=== PATIENT | female | born 1940 | race Caucasian/White ===

== ENCOUNTER 2016-07-24 18:05 | Inpatient (IN) | payer MEDICARE, OTHER ==
--- NOTE | ~2016-07-24 | HP ---
History And Physical [place] [id number] [facility] [place]. [address] NAME: JO SWEENEY : 40 STATUS : ADM IN [facility]#: [id number] AGE: 75 ADM/REG DATE : 07/24/16 MR#: [id number] REPORT SERV DATE: 07/25/16 DICTATED BY: LUIS ALBERTO FITZPATRICK DATE: 07/24/16 REPORT STATUS : Draft TRANSCRIBED BY: MODL DATE: 07/24/16 DATE OF ADMISSION: 07/24/2016 IDENTIFYING DATA: A 75-year-old white female, whose PCP is Dr. 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 CHIEF COMPLAINT: Rapid atrial fibrillation. HISTORY OF PRESENT ILLNESS: This history of present illness is obtained by talking with the patient as well as with Dr. Haddad on the phone as well as reviewing [employer] and [employer] and the notes that came from Dr. Haddad's office. The patient has a known history of paroxysmal atrial fibrillation and previously was supposed to be on Coumadin, although she tells me now that she never took it. She also had been seen Dr. Percy Carson of [facility] and was suspected of having paroxysms of atrial fibrillation and he wanted to have her wear a "[employer] monitor" back in August of 2013, however, she never went back to see him about that. Recently, she has been having frequent episodes of bronchitis and Dr. Haddad states she recently had Augmentin and has had about seven days worth of therapy for that, but she did not feel like she was a lot better. She stated that it made her have pain with urination and some nausea, so she quit it. She has also had several days of significant fatigue. She has been spending most of her time in the bed. She had subjectively felt fever, but did not check her temperature. She said she had chills. She had some vague shortness of breath. She went to see Dr. Haddad about this and was found to be in atrial fibrillation with rapid ventricular response, and he called us to admit her to the hospital. She states that she had her flu shot last year and she had her Prevnar vaccination in 2014. She has cut her smoking down to essentially where she stopped some time earlier this year. REVIEW OF SYSTEMS: On review of systems, she has occasional pain on the top of her head. In the last few days, she had some left facial pain, a fluttering sensation in her ears. She has postnasal drip. She has some nausea, some urinary hesitancy, some urinary urgency, and some bilateral pedal edema that is chronic. She has occasional headache. She feels bloated in the abdomen. She has lost about 4 pounds in the last six months. She denies chest pain, abdominal pain, vomiting, diarrhea, rectal bleeding, melena, or rash. She states she gets a flash of light before each eye intermittently and she has seen her eye doctor about that, and they told her it was a type of migraine. ALLERGIES: SHE CLAIMS ALLERGIES TO MORPHINE, CEPHALOSPORIN, SULFA, CODEINE, AND ERYTHROMYCIN. PAST MEDICAL HISTORY: She denies any history of diabetes, stroke, seizure, peptic ulcer or biliary tract disease, liver disease, chronic kidney disease, or sleep apnea. History And Physical [address] [address] NAME: JO SWEENEY : 40 STATUS : ADM IN [facility]#: [id number] AGE: 75 ADM/REG DATE : 07/24/16 MR#: [id number] REPORT SERV DATE: 07/25/16 DICTATED BY: LUIS ALBERTO FITZPATRICK DATE: 07/24/16 REPORT STATUS : Draft TRANSCRIBED BY: JOEL DATE: 07/24/16 She has had a coronary event with a heart attack in 2008. She reportedly had a cath showing an occluded second obtuse marginal at that time, was recommended for medical therapy. She has had previous thyroid cancer, treated with surgical resection. She has had surgery twice. She has had frequent bronchitis episodes and COPD. She has osteoporosis. She has moderate tricuspid regurgitation and a history of mitral regurgitation. She has postsurgical hypothyroidism. She has hypertension. She has had colon polyps. She has lumbar spine degenerative disk disease and had previous epidural steroid injections. HOME MEDICATIONS: She completed Augmentin, Tums 500 mg daily, vitamin D 1000 units daily, levothyroxine 75 mcg daily, metoprolol 12.5 mg b.i.d., and Pravachol 20 mg at bedtime. PAST SURGICAL HISTORY: She has had a partial colectomy for benign adenoma. She has had thyroid resected twice, hysterectomy, appendectomy, and cataract surgery. SOCIAL HISTORY: She is a . She quit smoking earlier this year. She states she really never smoked that much in her opinion. She has no alcohol intake history. 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 She lives alone. She walks without assistive device. FAMILY HISTORY: Mother had reported some type of skin disease. Father had congestive heart failure. Siblings with congestive heart failure. DIAGNOSTIC DATA: EKG sent today from Dr. Haddad's office done this afternoon reveals atrial fibrillation with rapid ventricular response with a heart rate in the 130s. The patient has an unusual axis with very positive AVR. She has nonspecific ST- and T-wave changes. PHYSICAL EXAMINATION: VITAL SIGNS: Temp is 98, pulse is varying anywhere from 118 to 140, respirations are 24, blood pressure 146/79, and O2 saturation is 94% on room air. GENERAL: A well-developed, thin, older female, who appears at this time in no acute distress. HEENT: Head is atraumatic. Pupils are equal, round, and reactive to light. Extraocular motions are intact. No scleral icterus noted. Ears, externally unremarkable. No inflammatory changes noted. Hearing normal bilaterally. Nose, noninflamed externally. Septum midline. Nares patent. Mouth, moist. Good gag. No redness of the throat, gums, or lips. NECK: Supple. No lymph node or thyroid enlargement. The carotids have good pulses. No bruits. LUNGS: Prolonged expiratory phase. Distant airflow. A few wheezes. No increased respiratory effort. HEART: Irregularly irregular without gallop, click, murmur, or rub. ABDOMEN: Bowel sounds positive. Soft, flat, nondistended, and nontender. No masses. No organomegaly. EXTREMITIES: Thin. She has 1+ bilateral ankle edema. No clubbing. No cyanosis. No edema. No actively inflamed skin or joints. NEUROLOGIC: She is alert, oriented, pleasant, and cooperative with motor strength that is 3/5 in all four extremities. No Babinski. No clonus noted. Cranial nerves II through XII History And Physical [address] [address] NAME: JO SWEENEY : 40 STATUS : ADM IN [facility]#: [id number] AGE: 75 ADM/REG DATE : 07/24/16 MR#: [id number] REPORT SERV DATE: 07/25/16 DICTATED BY: LUIS ALBERTO FITZPATRICK DATE: 07/24/16 REPORT STATUS : Draft TRANSCRIBED BY: MODNancy DATE: 07/24/16 are grossly normal. ASSESSMENT: 1. Recurrent paroxysmal atrial fibrillation with rapid ventricular response. 2. Chronic obstructive pulmonary disease in a patient who has recently quit smoking. 3. Possible urinary tract infection versus yeast vaginitis from recent antibiotic use. 4. History of coronary artery disease with a heart attack in 2008, treated with medical therapy. 5. Previous thyroid cancer resected. 6. History of osteoporosis. 7. History of previous benign colon polyp. 8. Hypothyroidism. 9. History of hypertension. PLAN: 1. Admit to a telemetry unit. We are going to increase her beta-ismael. If her heart rate sustains greater than 120, we will add Cardizem infusion protocol. We will begin anticoagulation with Eliquis and check the co-payment cost for her, and if it is too expensive, consider other options. 2. We will check procalcitonin and troponin and magnesium, and we will also get an echocardiogram and TSH. We will get urine culture, blood culture, and we will try to verify whether she is really on Symbicort at home or not. ROGERIO/JOEL Luis Alberto Fitzpatrick M.D. / [id number] CC: Amrita Holley M.D. [facility]
--- NOTE | ~2016-07-24 | CN ---
Consultation Report [facility] [address] [place]. [address] NAME: JO BHATIA : 40 STATUS : ADM IN PAT#: [id number] AGE: 75 ADM/REG DATE : 07/24/16 MR#: [id number] REPORT SERV DATE: 07/26/16 DICTATED BY: CLIFF HENRIQUEZ DATE: 07/25/16 REPORT STATUS : Draft TRANSCRIBED BY: MODL DATE: 07/25/16 CARDIOLOGY CONSULT NOTE DATE OF CONSULTATION: 07/25/2016 INDICATIONS: Atrial fibrillation. HISTORY OF PRESENT ILLNESS: Ms. Bhatia is a 75-year-old female with a history of known CAD status post an old infarct treated medically since 2008, COPD, and a history of paroxysmal atrial fibrillation, who was admitted to the Hospitalist Service with complaints of shortness of breath and palpitations. On arrival, she was found to be in atrial fibrillation with a rapid ventricular response. On an IV Cardizem drip and increased metoprolol, her heart rates have been under better control in the 100-110 range and blood pressures have been borderline at 100/60. She has periods of anxiety and dyspnea. She denies chest pain or angina. She has no near syncope or syncope. She has had no orthopnea/PND. She does have some intermittent ankle edema that is currently resolved. With better heart rate control, an echocardiogram was obtained that showed an LVEF of 45% with mild global hypocontractility. She had biatrial enlargement and moderate mitral and tricuspid regurgitation. Mild pulmonary hypertension was noted, all these findings appear old except for a slightly lower LVEF. REVIEW OF SYSTEMS: Pertinent positives and negatives are as outlined above. All others are negative with the exception of chronic exertional shortness of breath. PAST MEDICAL HISTORY: 1. CAD, status post old myocardial infarction. a. 2009, small OM2 occlusion treated medically. 2. Paroxysmal atrial fibrillation. 3. Moderate mitral and tricuspid regurgitation, chronic. 4. History of tobacco use. 5. COPD. 6. Hyperlipidemia. CURRENT MEDICATIONS: 1. Metoprolol 12.5 mg twice daily. 2. Pravastatin 20 mg daily. 3. Synthroid 75 mcg daily. 4. Calcium supplementation. 5. Vitamin D supplementation. ALLERGIES: INCLUDE CODEINE WHICH CAUSES GI UPSET, SULFA AND CEPHALOSPORINS CAUSE A RASH, AND OPIOIDS CAUSES ALTERED MENTAL STATUS. Consultation Report [facility] [address] [place]. [address] NAME: JO BHATIA : 40 STATUS : ADM IN PAT#: [id number] AGE: 75 ADM/REG DATE : 07/24/16 MR#: [id number] REPORT SERV DATE: 07/26/16 DICTATED BY: CLIFF HENRIQUEZ DATE: 07/25/16 REPORT STATUS : Draft TRANSCRIBED BY: JOEL DATE: 07/25/16 SOCIAL HISTORY: She has a history of remote tobacco use but quit a few years ago. She does not consume alcohol or use illegal drugs. FAMILY HISTORY: There is no significant family history of premature CAD, cardiomyopathy, or sudden . PHYSICAL EXAMINATION: VITALS: Temp afebrile, Pulse is 100, Respirations 18, BP is 100/50. GENERAL: Well-developed but thin and frail appearing female who is currently in no acute distress. PSYCH: Euthymic, normal affect. HEENT: Sclerae anicteric, mucous membranes moist and without lesions. NECK: No jugular venous distention. No hepatojugular reflux, carotid upstrokes 2+ and symmetric, there are no carotid or subclavian bruit. LUNGS: Moderately decreased breath sounds throughout with no wheezes. CARDIOVASCULAR: Irregularly irregular with soft S1 and normal S2. No audible S3. There is 1-2/6 holosystolic murmur at the apex without radiation. No parasternal lift. PMI is not palpable. ABDOMEN: Soft, nontender. Bowel sounds are positive and normoactive. PULSES: Radial and dorsalis pedis pulse are 1+ and symmetric. EXTREMITIES: Warm and there is no edema. SKIN: No clubbing or cyanosis, no rashes or lesions. IMPRESSION: 1. Atrial fibrillation with rapid ventricular response. 2. Nonischemic cardiomyopathy, EF 45% secondary to atrial fibrillation with rapid ventricular response. 3. Biatrial enlargement. 4. Moderate mitral and tricuspid regurgitation. 5. Mild pulmonary hypertension, secondary. 6. History of coronary artery disease with old infarct treated medically. 7. Chronic obstructive pulmonary disease. PLAN: I agree with previously started Eliquis for CVA prophylaxis. This is currently 5 mg twice daily, below threshold for adjusted dose given her frail appearance. With COPD and biatrial enlargement, long-term maintenance of sinus rhythm is unlikely, and therefore, rate control was preferred, although digoxin has fallen out of favor for management of rate control, her COPD, and relative hypotension make other therapy options less safe. We will therefore discontinue IV Cardizem, increase metoprolol to 25 mg three times daily, and start digoxin this evening. She will need volume management due to significant biatrial enlargement with moderate mitral and tricuspid regurgitation. We will start low dose Bumex with potassium supplementation. We will follow with you. Consultation Report [address] [place]. [address] NAME: JO BHATIA : 40 STATUS : ADM IN PAT#: [id number] AGE: 75 ADM/REG DATE : 07/24/16 MR#: [id number] REPORT SERV DATE: 07/26/16 DICTATED BY: CLIFF HENRIQUEZ. DATE: 07/25/16 REPORT STATUS : Draft TRANSCRIBED BY: JOEL DATE: 07/25/16 AEA/JOEL Cliff Henriquez M.D. / [id number] CC: MD Karel Thorne M.D.
--- NOTE | ~2016-07-24 | DS ---
Discharge Summary [facility] [address] [place]. [address] NAME: JO SWEENEY : 40 STATUS : DIS IN PAT#: [id number] AGE: 75 ADM/REG DATE : 07/24/16 MR#: [id number] REPORT SERV DATE: 07/30/16 DICTATED BY: CHEVY MCDERMOTT DATE: 07/28/16 REPORT STATUS : Draft TRANSCRIBED BY: JOEL DATE: 07/28/16 ADMISSION DATE: 07/24/2016 DISCHARGE DATE: 07/28/2016 PROCEDURES DONE: 1. 07/24/2016, chest x-ray: No acute cardiopulmonary disease. Stable emphysema, with increased lung volumes and borderline cardiomegaly with calcified plaque at the aortic arch. Stable degenerative levolumbar scoliosis. 2. 07/25/2016, 2D echo: Normal LV size and mild systolic dysfunction, EF of 40 to 45%. Normal RV size and systolic function. Moderate biatrial enlargement. Aortic valve sclerosis without stenosis. Moderate mitral and tricuspid regurgitation. Mild pulmonary hypertension. CONSULT: Dr. Chaidez for Cardiology. REASON FOR ADMISSION: Rapid AFib. HISTORY OF HOSPITAL STAY: A 75-year-old white female with past medical history of COPD, coronary artery disease status post ID, history of thyroid cancer status post resection, osteoporosis, hypothyroidism, hypertension, presenting with rapid AFib. The patient was admitted for further evaluation of her atrial fibrillation. Cardiology was consulted regarding the patient's rate control. The patient was started initially on Cardizem drip, which got the patient rate controlled. However, Cardiology recommended increasing the beta ismael and starting on digoxin. Cardiology felt that the patient will need rate control. Therefore, IV Cardizem was discontinued. Metoprolol has been increased to three times a day to compensate as well as digoxin. In addition, the patient will also be started on Eliquis 2.5 mg p.o. b.i.d. Currently, the patient is rate controlled without any difficulty. DISPOSITION: The patient feels fine, no complaint. ACTIVITIES: As tolerated. DIET: Cardiac. INSTRUCTIONS UPON DISCHARGE: 1. The patient is to followup with [facility] within three to four weeks. 2. The patient is to follow up with primary care within two weeks. MEDICATION UPON DISCHARGE: 1. Eliquis 2.5 mg p.o. b.i.d. 2. Bumex 1 mg p.o. daily. 3. Tums 500 mg p.o. daily. 4. Vitamin D 1000 units p.o. daily. 5. Digoxin 0.125 mg p.o. daily. 6. Guaifenesin 600 mg p.o. daily. 7. Levothyroxine 75 mcg p.o. daily. Discharge Summary [address] [address] NAME: JO SWEENEY : 40 STATUS : DIS IN PAT#: [id number] AGE: 75 ADM/REG DATE : 07/24/16 MR#: [id number] REPORT SERV DATE: 07/30/16 DICTATED BY: CHEVY MCDERMOTT DATE: 07/28/16 REPORT STATUS : Draft TRANSCRIBED BY: JOEL DATE: 07/28/16 8. Metoprolol 25 mg p.o. q.8h. 9. Potassium 20 mEq daily. 10.Pravastatin 20 mg p.o. at bedtime. DIAGNOSES UPON DISCHARGE: 1. Atrial fibrillation with rapid ventricular response, rate controlled on digoxin and beta ismael. 2. Hyperthyroid. 3. Hypertension. 4. Hyperlipidemia. 5. History of coronary artery disease. 6. Bilateral atrial enlargement. 7. Mild pulmonary hypertension. 8. Mild mitral, tricuspid and mitral regurgitation. 9. Nonischemic cardiomyopathy, ejection fraction of 45%. SILVINA/JOEL Chevy Mcdermott MD / [id number] CC: MD Karel Thorne M.D.
[~2016-07-24 18:05] MED LIST: ALEVE; ASA5GR PO; ASAB PO; CRANBERRY PO; LOP25 PO; NITROQUICK0.4 MG SL; PRAVAC PO; SYN1 PO; UNKNOWN THYROID MED; VITAMIN D31000 UNIT PO
[2016-07-24] MEDS ORDERED: LEVOTHYROXIN75 MCG PO (18:48)
[2016-07-24] MEDS ORDERED: PRAVAC PO (18:48)
[2016-07-24] MEDS ORDERED: LOP25 PO (18:49)
[2016-07-24] MEDS ORDERED: AUG500 PO (18:50)
[2016-07-24] MEDS ORDERED: VITAMIN D1000 UNI1 PO (18:50)
[2016-07-24] MEDS ORDERED: TUMSROLL PO (18:51)
[2016-07-24 21:30] LABS: BASOPHILS 2.3 %; EOSINOPHILS 0 %; HEMOGLOBIN 13.2 g/dL (12.0-16.0); IMMATURE GRANULOCYTES 0.5 %; IMMATURE GRANULOCYTES ABSOLUTE 0.02 10/3/uL (0.0-0.11); LYMPHOCYTES 16.4 %; LYMPHOCYTES ABSOLUTE 0.72 10/3/uL (0.67-4.30); MEAN CORPUS HGB CONC 33.7 g/dL (32.0-36.0); MEAN CORPUSCULAR HEMOGLOB 28.8 pg (26.0-34.0); MEAN PLATELET VOLUME 11.5 fL (9.2-13.0); MONOCYTES 15.2 %; MONOCYTES ABSOLUTE 0.67 10/3/uL (0.21-1.20); NEUTROPHILS 65.6 %; NEUTROPHILS ABSOLUTE 2.89 10/3/uL (2.02-8.40); RBC DISTRIBUTION WIDTH 15.6 % (12.0-16.0); RED CELL COUNT 4.59 10/6/uL (4.0-5.6); WHITE BLOOD CELLS 4.4 10/3/uL (4.5-10.5)
[2016-07-24 21:31] LABS: HEMATOCRIT 39.2 % (36.0-48.0); MANUAL DIFF NO %; MEAN CORPUSCULAR VOLUME 85.4 fL (80-100)
[2016-07-24 21:38] LABS: A/G RATIO 1.3 (0.7-1.9); ALBUMIN 3.5 G/DL (3.5-5.0); ALKALINE PHOSPHATASE 106 U/L (45-117); BUN (BLOOD UREA NITROGEN) 25 MG/DL (6-23); CALCIUM, SERUM 8.9 MG/DL (8.5-10.4); CHLORIDE, SERUM 100 MMOL/L (96-112); CO2 (CARBON DIOXIDE) 31 MMOL/L (24-34); CREATININE 0.87 MG/DL (0.55-1.02); GFR AFRICAN AMERICAN 76 ML/MIN (>=60); GFR NON AFRICAN AMERICAN 65 ML/MIN (>=60); GLOBULIN 2.6 G/DL (2.5-4.1); GLUCOSE, SERUM 114 MG/DL (60-99); POTASSIUM, SERUM 3.5 MMOL/L (3.5-5.3); SGOT(AST) 104 U/L (5-40); SGPT(ALT) 63 U/L (5-65); SODIUM, SERUM 140 MMOL/L (135-148); TOTAL BILIRUBIN 0.7 MG/DL (0-1.2); TOTAL PROTEIN 6.1 G/DL (6.0-8.5)
[2016-07-24 21:41] LABS: INTERNATIONAL NORMAL RATI 1.1 UNITS (-); PARTIAL THROMBO TIME 36.6 SEC (22.5-37.2); PROTIME (NOT ORD) 13.7 SEC (12.0-14.5)
[2016-07-24 21:51] LABS: PLATELET ESTIMATE DEC (ADEQUATE); RBC MORPHOLOGY NORM (NORMAL)
[2016-07-24 21:52] LABS: ALKALINE PHOSPHATASE 103 U/L (45-117); BUN (BLOOD UREA NITROGEN) 26 MG/DL (6-23); CALCIUM, SERUM 8.5 MG/DL (8.5-10.4); CHLORIDE, SERUM 102 MMOL/L (96-112); CO2 (CARBON DIOXIDE) 31 MMOL/L (24-34); CREATININE 0.94 MG/DL (0.55-1.02); GFR AFRICAN AMERICAN 69 ML/MIN (>=60); GFR NON AFRICAN AMERICAN 59 ML/MIN (>=60); GLUCOSE, SERUM 105 MG/DL (60-99); PLATELET COUNT 71 10/3/uL (150-400); POTASSIUM, SERUM 3.7 MMOL/L (3.5-5.3); SGOT(AST) 88 U/L (5-40); SGPT(ALT) 56 U/L (5-65); SODIUM, SERUM 140 MMOL/L (135-148); TOTAL BILIRUBIN 0.5 MG/DL (0-1.2); TROPONIN I 0.04 NG/ML (<0.05)
[2016-07-25 04:24] LABS: BUN (BLOOD UREA NITROGEN) 27 MG/DL (6-23); CALCIUM, SERUM 8.3 MG/DL (8.5-10.4); CHLORIDE, SERUM 103 MMOL/L (96-112); CO2 (CARBON DIOXIDE) 28 MMOL/L (24-34); CREATININE 0.69 MG/DL (0.55-1.02); GFR AFRICAN AMERICAN 99 ML/MIN (>=60); GFR NON AFRICAN AMERICAN 85 ML/MIN (>=60); GLUCOSE, SERUM 97 MG/DL (60-99); POTASSIUM, SERUM 3.7 MMOL/L (3.5-5.3); SODIUM, SERUM 139 MMOL/L (135-148)
[2016-07-25 07:58] LABS: ASCORBIC ACID (UR NOT ORDER) NEG (NEG); BILIRUBIN, URINE NEGATIVE (NEG); KETONE, URINE TRACE MG/DL (NEG); LEUKOCYTE ESTERASE(NOT OR NEG (NEG); WBC (NOT ORDERED) (RFLEX) 8 (0-5)
[2016-07-26 04:24] LABS: BASOPHILS 2.3 %; BASOPHILS ABSOLUTE 0.14 10/3/uL (0.0-0.16); EOSINOPHILS 0.2 %; EOSINOPHILS ABSOLUTE 0.01 10/3/uL (0.0-0.53); HEMATOCRIT 39.9 % (36.0-48.0); HEMOGLOBIN 12.9 g/dL (12.0-16.0); IMMATURE GRANULOCYTES 0.5 %; IMMATURE GRANULOCYTES ABSOLUTE 0.03 10/3/uL (0.0-0.11); LYMPHOCYTES ABSOLUTE 1.62 10/3/uL (0.67-4.30); MEAN CORPUS HGB CONC 32.3 g/dL (32.0-36.0); MEAN CORPUSCULAR HEMOGLOB 28.1 pg (26.0-34.0); MEAN CORPUSCULAR VOLUME 86.9 fL (80-100); MEAN PLATELET VOLUME 11.8 fL (9.2-13.0); MONOCYTES 17.5 %; MONOCYTES ABSOLUTE 1.09 10/3/uL (0.21-1.20); NEUTROPHILS 53.5 %; NEUTROPHILS ABSOLUTE 3.33 10/3/uL (2.02-8.40); RBC DISTRIBUTION WIDTH 15.9 % (12.0-16.0); RED CELL COUNT 4.59 10/6/uL (4.0-5.6)
[2016-07-26 04:25] LABS: MANUAL DIFF NO %; PLATELET COUNT 105 10/3/uL (150-400); WHITE BLOOD CELLS 6.2 10/3/uL (4.5-10.5)
[2016-07-26 04:28] LABS: A/G RATIO 0.9 (0.7-1.9); ALBUMIN 2.7 G/DL (3.5-5.0); ALKALINE PHOSPHATASE 93 U/L (45-117); CALCIUM, SERUM 8.4 MG/DL (8.5-10.4); CHLORIDE, SERUM 104 MMOL/L (96-112); CO2 (CARBON DIOXIDE) 37 MMOL/L (24-34); CREATININE 0.81 MG/DL (0.55-1.02); GFR AFRICAN AMERICAN 82 ML/MIN (>=60); GFR NON AFRICAN AMERICAN 71 ML/MIN (>=60); GLOBULIN 3.1 G/DL (2.5-4.1); GLUCOSE, SERUM 91 MG/DL (60-99); PHOSPHORUS, SERUM 2.5 MG/DL (2.5-4.5); POTASSIUM, SERUM 4.3 MMOL/L (3.5-5.3); SGOT(AST) 54 U/L (5-40); SGPT(ALT) 39 U/L (5-65); SODIUM, SERUM 143 MMOL/L (135-148); TOTAL BILIRUBIN 0.4 MG/DL (0-1.2); TOTAL PROTEIN 5.8 G/DL (6.0-8.5)
[2016-07-26 04:29] LABS: BUN (BLOOD UREA NITROGEN) 21 MG/DL (6-23)
[2016-07-26 04:39] LABS: PLATELET ESTIMATE SLT DEC (ADEQUATE); RBC MORPHOLOGY NORM (NORMAL)
[2016-07-27 04:02] LABS: BASOPHILS 2.2 %; BASOPHILS ABSOLUTE 0.14 10/3/uL (0.0-0.16); EOSINOPHILS 0.5 %; EOSINOPHILS ABSOLUTE 0.03 10/3/uL (0.0-0.53); HEMATOCRIT 39.2 % (36.0-48.0); HEMOGLOBIN 12.9 g/dL (12.0-16.0); IMMATURE GRANULOCYTES 0.3 %; IMMATURE GRANULOCYTES ABSOLUTE 0.02 10/3/uL (0.0-0.11); LYMPHOCYTES 47.3 %; LYMPHOCYTES ABSOLUTE 2.95 10/3/uL (0.67-4.30); MEAN CORPUS HGB CONC 32.9 g/dL (32.0-36.0); MEAN CORPUSCULAR HEMOGLOB 28.5 pg (26.0-34.0); MEAN CORPUSCULAR VOLUME 86.7 fL (80-100); MEAN PLATELET VOLUME 11.8 fL (9.2-13.0); MONOCYTES 10.4 %; MONOCYTES ABSOLUTE 0.65 10/3/uL (0.21-1.20); NEUTROPHILS 39.3 %; NEUTROPHILS ABSOLUTE 2.45 10/3/uL (2.02-8.40); RBC DISTRIBUTION WIDTH 15.5 % (12.0-16.0); RED CELL COUNT 4.52 10/6/uL (4.0-5.6); WHITE BLOOD CELLS 6.2 10/3/uL (4.5-10.5)
[2016-07-27 04:06] LABS: MANUAL DIFF NO %; PLATELET COUNT 148 10/3/uL (150-400)
[2016-07-27 04:10] LABS: ALBUMIN 2.4 G/DL (3.5-5.0); BUN (BLOOD UREA NITROGEN) 18 MG/DL (6-23); CHLORIDE, SERUM 100 MMOL/L (96-112); CO2 (CARBON DIOXIDE) 37 MMOL/L (24-34); CREATININE 0.59 MG/DL (0.55-1.02); GFR AFRICAN AMERICAN 104 ML/MIN (>=60); GFR NON AFRICAN AMERICAN 90 ML/MIN (>=60); GLUCOSE, SERUM 86 MG/DL (60-99); PHOSPHORUS, SERUM 2.6 MG/DL (2.5-4.5); POTASSIUM, SERUM 4.2 MMOL/L (3.5-5.3); SODIUM, SERUM 141 MMOL/L (135-148)
[2016-07-27 04:33] LABS: PLATELET ESTIMATE ADQ (ADEQUATE)
[2016-07-27 04:34] LABS: RBC MORPHOLOGY NORM (NORMAL)
[2016-07-27 18:42] LABS: INFLUENZA A SCREEN NEGATIVE (NEGATIVE); INFLUENZA B SCREEN NEGATIVE (NEGATIVE)
[2016-07-28 06:07] LABS: BASOPHILS 0.9 %; BASOPHILS ABSOLUTE 0.07 10/3/uL (0.0-0.16); EOSINOPHILS 0.5 %; EOSINOPHILS ABSOLUTE 0.04 10/3/uL (0.0-0.53); HEMOGLOBIN 14.9 g/dL (12.0-16.0); IMMATURE GRANULOCYTES 0.5 %; IMMATURE GRANULOCYTES ABSOLUTE 0.04 10/3/uL (0.0-0.11); LYMPHOCYTES 49.9 %; LYMPHOCYTES ABSOLUTE 3.88 10/3/uL (0.67-4.30); MEAN CORPUS HGB CONC 32.6 g/dL (32.0-36.0); MEAN CORPUSCULAR HEMOGLOB 28.6 pg (26.0-34.0); MEAN CORPUSCULAR VOLUME 87.7 fL (80-100); MEAN PLATELET VOLUME 11.3 fL (9.2-13.0); MONOCYTES 8.6 %; MONOCYTES ABSOLUTE 0.67 10/3/uL (0.21-1.20); NEUTROPHILS 39.6 %; NEUTROPHILS ABSOLUTE 3.07 10/3/uL (2.02-8.40); RBC DISTRIBUTION WIDTH 15.4 % (12.0-16.0); RED CELL COUNT 5.21 10/6/uL (4.0-5.6); WHITE BLOOD CELLS 7.8 10/3/uL (4.5-10.5)
[2016-07-28 06:14] LABS: HEMATOCRIT 45.7 % (36.0-48.0); MANUAL DIFF NO %; PLATELET COUNT 197 10/3/uL (150-400)
[2016-07-28 06:16] LABS: ALBUMIN 2.8 G/DL (3.5-5.0); CALCIUM, SERUM 9.2 MG/DL (8.5-10.4); CHLORIDE, SERUM 98 MMOL/L (96-112); CO2 (CARBON DIOXIDE) 39 MMOL/L (24-34); GFR AFRICAN AMERICAN 84 ML/MIN (>=60); GFR NON AFRICAN AMERICAN 72 ML/MIN (>=60); GLUCOSE, SERUM 93 MG/DL (60-99); POTASSIUM, SERUM 4.7 MMOL/L (3.5-5.3); SODIUM, SERUM 141 MMOL/L (135-148)
[2016-07-28 06:19] LABS: BUN (BLOOD UREA NITROGEN) 22 MG/DL (6-23)
[2016-07-28] MEDS ORDERED: BUM1 PO (11:26)
[2016-07-28] MEDS ORDERED: ELIQUIS 2.5 MG2.5 MG PO (11:26)
[2016-07-28] MEDS ORDERED: LAN125 PO (11:27)
[2016-07-28] MEDS ORDERED: MUCINEX600 MG PO (11:28)
[2016-07-28] MEDS ORDERED: LOP25 PO (11:28)
[2016-07-28] MEDS ORDERED: KDUR20 PO (11:29)
== END 2016-07-28 13:40 | disposition home or self-care (01) | DRG 309 ==
LOC: 5NO 18:05
PROVIDERS: Hospitalist; Internal Medicine
DX: I48.0 Paroxysmal atrial fibrillation (principal); Z68.1 Body mass index [BMI] 19.9 or less, adult; I42.9 Cardiomyopathy, unspecified; I27.2 Other secondary pulmonary hypertension; J44.9 Chronic obstructive pulmonary disease, unspecified; I25.10 Atherosclerotic heart disease of native coronary artery without angina pectoris; M81.0 Age-related osteoporosis without current pathological fracture; E03.9 Hypothyroidism, unspecified; I10 Essential (primary) hypertension; I25.2 Old myocardial infarction; Z79.01 Long term (current) use of anticoagulants; Z88.5 Allergy status to narcotic agent; Z88.1 Allergy status to other antibiotic agents; Z88.2 Allergy status to sulfonamides; Z85.850 Personal history of malignant neoplasm of thyroid; Z98.890 Other specified postprocedural states; Z90.710 Acquired absence of both cervix and uterus; Z90.49 Acquired absence of other specified parts of digestive tract; Z87.891 Personal history of nicotine dependence; I34.0 Nonrheumatic mitral (valve) insufficiency; I36.1 Nonrheumatic tricuspid (valve) insufficiency; R63.4 Abnormal weight loss
CPT/HCPCS: 36415; 71010; 71020; 80048; 80053; 80069; 81001; 83735; 83880; 84100; 84145; 84443; 84484; 85025; 85027; 85610; 85730; 87040; 87449; 87804; 93005; 93306; 94640; 97161-GP; A9270-GY; G8978-CH-GP; G8979-CH-GP; G8980-CH-GP; J1160; J2405